=== PATIENT | male | born 2005 | race Native Hawaiian/Other Pacific Islander ===

== ENCOUNTER → 2025-05-29 15:27 | Outpatient (CLI) | payer OTHER, SELFPAY ==
--- NOTE | 2025-05-29 15:28 | DI.CT.S_ITS ---
PROCEDURE: CT HAND RIGHT WITHOUT CON INDICATIONS: 1st metacarpal fracture- R hand TECHNIQUE: Noncontrast 1 mm axial sections acquired through the carpal bones, with coronal and sagittal reformats. For radiation dose reduction, the following was used: automated exposure control, adjustment of mA and/or kV according to patient size. COMPARISON: Outside Facility, CR, XR HAND RT MIN 3V, 05/09/2025, 15:03. [facility], CR, XR HAND RT MIN 3V, 05/17/2025, 16:09. FINDINGS: Image quality: Excellent. Bones: Comminuted intra-articular fracture is seen at the 1st metacarpal base. There is minimal dorsal displacement of the dominant shaft component relative to the basilar fragments. Less than 1 mm step-off at the proximal articular surface. Mild healing changes are seen with periosteal new bone formation. No definite osseous bridging. Remaining visualized osseous structures are intact. Soft tissues: Trace radiocarpal and midcarpal joint fluid. The articular cartilages, ligaments, and tendons are not well evaluated with CT. The visualized musculature is normal in bulk. IMPRESSION: Minimally displaced comminuted intra-articular fracture of the 1st metacarpal base with mild healing changes. Osseous alignment does not appear significantly changed when compared to prior radiographs. Approved by: Raúl Lozano M.D. on 05/29/2025 at 20:27
== END ==
LOC: CT 15:28
PROVIDERS: PCP Physician Assistant Surgical; Referring Provider Physician Assistant Surgical; Visit Provider Physician Assistant Surgical
DX: S62.231A Other displaced fracture of base of first metacarpal bone, right hand, initial encounter for closed fracture (principal); X58.XXXA Exposure to other specified factors, initial encounter
CPT/HCPCS: 73200